=== PATIENT | male | born 1940 | race Hispanic/Latino ===

== ENCOUNTER 2019-12-03 07:57 | Day surgery (SDC) | payer OTHER, MEDICARE ==
[2019-12-01 12:51] LABS: BASOPHILS % (AUTO) 0.8 % (0.0-5.0); EOSINOPHILS % (AUTO) 2.9 % (0.0-8.0); HEMATOCRIT 36.1 % (42-54); LYMPHOCYTES % (AUTO) 24.3 % (21.0-51.0); MEAN CORPUSCULAR HEMOGLOBIN 22.6 pg (27.0-33.0); MEAN CORPUSCULAR HGB CONC 29.4 g/dL (32.0-36.0); MONOCYTES % (AUTO) 9.9 % (3.0-13.0); NEUTROPHILS % (AUTO) 61.2 % (40.0-77.0); PLATELET COUNT (AUTO) 314 K/uL (130-400); RED BLOOD CELL COUNT(AUTO) 4.69 MIL/uL (4.50-6.20); RED CELL DISTRIBUTION WIDTH 17.3 % (11.0-15.5); WHITE BLOOD COUNT (AUTO) 9.2 K/uL (4.8-10.8)
[2019-12-01 12:53] LABS: APPEARANCE,URINE Clear (CLEAR); BILIRUBIN,URINE Negative (NEGATIVE); COLOR,URINE Yellow (YELLOW); GLUCOSE, URINE (UA) Negative (NEGATIVE); KETONES,URINE Negative (NEGATIVE); LEUKOCYTE ESTERASE ,URINE Negative (NEGATIVE); NITRATE,URINE Negative (NEGATIVE); OCCULT BLOOD,URINE Negative (NEGATIVE); PH,URINE 6.5 (5.0-8.0); PROTEIN,URINE Negative (NEGATIVE)
[2019-12-01 13:01] LABS: CREATININE 0.9 mg/dL (0.5-1.5); POTASSIUM 4.3 mmol/L (3.5-5.1)
[2019-12-01 13:09] VITALS: BP 170/78
[2019-12-01 13:10] LABS: INR 1.05 (0.85-1.15); PARTIAL THROMBOPLASTIN TIME 26.2 SEC (26.3-35.5)
--- NOTE | 2019-12-02 14:43 | NUR ---
ABNORMAL LABS HGB 10.6, HCT 36.1 REPORTED TO GREYSON LYONS FOR DR. KHAN. NO FURTHER ORDERS, MAY PROCEED WITH PLANNED PROCEDURE.
[~2019-12-03] VITALS: Ht 180.3 cm; Wt 118.8 kg
[2019-12-03] VITALS (15 sets, daily range): BP systolic 127–159; BP diastolic 58–78
[~2019-12-03 07:57] MED LIST: ASPI-555 PO; CILO100T PO; LISI10TA7 PO; OMEP40CA13 PO; SIMV-46 PO; SODIUM CHLORIDE 0.9% 500ML 500 ML IV SCH
[2019-12-03] MEDS ORDERED: SODIUM CHLORIDE 0.9% 1000ML 1,000 ML IV ONE (08:07)
--- NOTE | 2019-12-03 14:40 | NUR ---
REPORT REPORT GIVEN TO DARSHAN VILLALTA TO RESUME CARE OF PATIENT
--- NOTE | 2019-12-03 15:05 | NUR ---
PROCEDURE PT TAKEN TO PROCEDURE VIA BED BY CAGE CASHIER STAFF AMBAR SHEPPARD
[2019-12-03] MEDS ORDERED: FENTANYL CITRATE PF 50 MCG/1 ML 2ML VIAL ONE (15:06)
[2019-12-03] MEDS ORDERED: HEPARIN SODIUM 1000UNIT/ML 10ML VIAL ONE (15:06)
[2019-12-03] MEDS ORDERED: IODIXANOL 320 MG/ML 100 ML VIAL ONE (15:06)
[2019-12-03] MEDS ORDERED: MIDAZOLAM HCL 1 MG/ML 2ML VIAL ONE (15:06)
[2019-12-03] MEDS ORDERED: LIDOCAINE HCL 2% 20ML ONE (15:07)
[2019-12-03] MEDS ORDERED: NITROGLYCERIN 2 MG/VIAL VIAL IV ONE (15:28)
[2019-12-03] MEDS ORDERED: SODIUM CHLORIDE 0.9% 1000ML 1,000 ML IV SCH (16:18)
[2019-12-03] MEDS ORDERED: ATROPINE SULFATE 0.1 MG/ML 10 ML SYG IVP ONE (16:23)
[2019-12-03] MEDS ORDERED: DEXTROSE 50%-WATER 50 ML DISP.SYRIN IV PRN (16:30)
[2019-12-03] MEDS ORDERED: GLUCAGON 1MG KIT 1 MG ML IM PRN (16:30)
[2019-12-03] MEDS ORDERED: HYDRALAZINE HCL 20 MG/ML VIAL IV PRN (16:30)
[2019-12-03] MEDS ORDERED: NITROGLYCERIN 0.4 MG SL TAB SL PRN (16:30)
[2019-12-03] MEDS ORDERED: ACETAMINOPHEN-CODEINE 300/30MG TAB PO PRN (16:30)
[2019-12-04] MEDS ORDERED: ASPIRIN 81MG TAB.CHEW PO SCH (09:00)
== END 2019-12-03 20:15 | disposition home or self-care (01) ==
LOC: DAH 07:57
PROVIDERS: ATTEND Internal Medicine Cardiovascular Disease
DX: I70.212 Atherosclerosis of native arteries of extremities with intermittent claudication, left leg (principal); I25.10 Atherosclerotic heart disease of native coronary artery without angina pectoris; I25.5 Ischemic cardiomyopathy; I10 Essential (primary) hypertension; E78.5 Hyperlipidemia, unspecified; Z98.890 Other specified postprocedural states; Z79.899 Other long term (current) drug therapy; Z79.82 Long term (current) use of aspirin; Z79.01 Long term (current) use of anticoagulants; Z72.89 Other problems related to lifestyle; Z83.3 Family history of diabetes mellitus
CPT/HCPCS: 36247; 36415; 71045; 75630; 80048; 81003; 85025; 85610; 85730; 93005; A4215; A4216; A4221; A4222; A4223 ×3; A4606; A4615; A4663; A6260; A6445; C1769; C1894 ×2; J1644; J2250; J3010; J3490 ×2; J7030; Q9967; 99156; 99157; J0461